=== PATIENT | male | born 1945 | race Two or more races ===

== ENCOUNTER 2016-06-13 17:50 | Inpatient (IN) | payer MEDICARE, OTHER ==
--- NOTE | 2016-06-13 18:50 | ED Physician Chart ---
Chief Complaint/HPI - Patient Information Date Seen:: 06/13/16 Time Seen:: 18:30 Chief Complaint:: anorexia History of Present Illness:: patient is anorexic and according to his brother (information from EMT) has lost 12 lb in 2 weeks. Has been constipated for the last 4 days. Allergies:: Allergies Allergy/AdvReac Type Severity Reaction Status Date / Time No Known Allergies Allergy Verified 06/13/16 18:42 Historian:: Patient, EMS Review:: Nurse's Note Reviewed Review of Systems - Review of Systems General/Constitutional: No fever, No chills, Loss of appetite Skin: No skin lesions Head: No headache Eyes: No loss of vision ENT: No earache Neck: No neck pain Cardio Vascular: No chest pain Pulmonary: No SOB GI: No nausea, No vomiting G/U: No dysuria Musculoskeletal: No bone or joint pain Endocrine: No polyuria Psychiatric: Depression Hematopoietic: Bruising Allergic/Immuno: No urticaria Neurological: No syncope, No focal symptoms Past Medical History - Past Medical History Past Medical History: Other (rectal bleeding; diaphragmatic hernia) Family History: None Social History: Non Smoker, No Alcohol Surgical History: other (bilateral inguinal hernia repair) Psychiatricy History: Depression Medication: Reviewed Family Medical History - Family Member Mother History Unknown: Yes Ethnicity: Physical Exam - Physical Examination General/Constitutional: Well-developed, well-nourished, Alert, No distress Other Gen/Cons comments:: alert and oriented to the correct month and year Head: Atraumatic Eyes: Lids, conjuctiva normal Skin: Nl inspection, No rash ENMT: External ears, nose nl, TM canals nl Neck: No nuchal rigidity Respiratory: Nl effort/Exclusion, Clear to Auscultation Cardio Vascular: RRR GI: No tenderness/rebounding/guarding, No organomegaly, No hernia, Nondistended , No mass/bruits, No McBurney tenderness Other GI comments:: no external hemorrhoids : No CVA tenderness Extremities: Normal digits & nails Neuro/Psych: No focal deficits Misc: No paraspinal tenderness Labs/Radiology/EKG Results - Lab Results Results: Laboratory Results - last 24 hr 06/13/16 06/13/16 18:55 18:55 WBC 6.1 RBC 4.27 Hgb 13.4 Hct 39.6 MCV 92.7 MCH 31.3 H MCHC Differential 33.8 RDW 12.6 Plt Count 353 D MPV 8.3 Neutrophils % 56.1 Lymphocytes % 30.8 Monocytes % 7.2 Eosinophils % 5.5 H Basophils % 0.4 Sodium 138 Potassium 3.5 Chloride 104 Carbon Dioxide 27.0 Anion Gap 10.5 BUN 16 Creatinine 0.9 Est GFR ( Amer) > 60.0 Est GFR (Non-Af Amer) > 60.0 BUN/Creatinine Ratio 17.8 Glucose 102 Calcium 9.7 Total Bilirubin 0.7 AST 33 ALT 29 Alkaline Phosphatase 54 Total Protein 7.1 Albumin 4.0 L Globulin 3.1 Albumin/Globulin Ratio 1.3 ED Septic Shock - . Is Septic Shock (SBP<90, OR Lactate>4 mmol\L) present?: No Reassessment (Disposition) - Reassessment Reassessment Condition:: Unchanged - Diagnosis Diagnosis:: depression; constipation; anorexia - Patient Disposition Admitted to:: [facility] Admitting Medical Physician:: David Zuniga Admitting Psych Physician:: Jefferson Smith Condition at Disposition:: Stable, Unchanged
[2016-06-13 19:00] LABS: % BASOPHILS 0.4 % (0.0-2.0); % EOSINOPHILS 5.5 % (0.0-5.0); % LYMPHOCYTES 30.8 % (20.0-50.0); % MONOCYTES 7.2 % (2.0-10.0); % NEUTROPHILS 56.1 % (40.0-80.0); HEMATOCRIT 39.6 % (39.0-49.0); HEMOGLOBIN 13.4 gm/dL (12.6-17.4); MEAN CELL VOLUME 92.7 fl (80-99); MEAN CORPUSCULAR HEMOGLOBIN 31.3 pg (27.0-31.0); MEAN CORPUSCULAR HGB CONC 33.8 pg (28.0-36.0); MEAN PLATELET VOLUME 8.3 fl; NEUTROPHILE ABSOLUTE 3.5 Th/cmm (1.8-8.0); RED BLOOD COUNT 4.27 Mil/cmm (3.80-5.80); RED CELL DISTRIBUTION WIDTH 12.6 % (11.5-20.0); WHITE BLOOD COUNT 6.1 Th/cmm (4.8-10.8)
[2016-06-13 19:02] LABS: PLATELET COUNT 353 Th/cmm (150-400)
[2016-06-13 19:13] LABS: ALB/GLOB RATIO 1.3 (1.0-1.8); ALKALINE PHOSPHATASE 54 U/L (34-104); ANION GAP 10.5 (7.0-16.0); BILIRUBIN,TOTAL 0.7 mg/dL (0.3-1.0); BUN - UREA NITROGEN 16 mg/dL (7-25); BUN/CREATININE RATIO 17.8; CALCIUM SERUM 9.7 mg/dL (8.6-10.3); CHLORIDE 104 mEq/L (98-107); CREATININE - SERUM 0.9 mg/dL (0.7-1.3); GLUCOSE 102 mg/dL (70-105); POTASSIUM SERUM 3.5 mEq/L (3.5-5.1); SGOT 33 U/L (13-39); SGPT/ALT 29 U/L (7-52); SODIUM SERUM 138 mEq/L (136-145)
[2016-06-13 23:29] VITALS: BP 124/74
[2016-06-14] MEDS ORDERED: Hydrocodone/APAP 5mg/325mg Tab PO PRN (02:41)
[2016-06-14] MEDS ORDERED: Polyvinyl Alcohol Ophth Soln 15 mL Bottle EACH EYE PRN (02:41)
[2016-06-14] MEDS: Pantoprazole 40 mg EC Tab PO SCH ×2 (08:38→16:56)
[2016-06-14] MEDS: Lactobacillus Rhamnosus 10 Billion CFU Capsule PO SCH (08:39)
[2016-06-14] MEDS: POLYETHYLENE GLYCOL 3350 17 GM PACK PO SCH (08:40)
--- NOTE | 2016-06-14 12:49 | Internal Medicine Prog Note ---
Internal Medicine Subjective - Subjective Service Date: 06/14/16 (030226) Internal Medicine Objective - Results Result Diagrams: 06/13/16 18:55 06/13/16 18:55 Recent Labs: Laboratory Last Values WBC 6.1 Th/cmm (4.8-10.8) 06/13/16 18:55 RBC 4.27 Mil/cmm (3.80-5.80) 06/13/16 18:55 Hgb 13.4 gm/dL (12.6-17.4) 06/13/16 18:55 Hct 39.6 % (39.0-49.0) 06/13/16 18:55 MCV 92.7 fl (80-99) 06/13/16 18:55 MCH 31.3 pg (27.0-31.0) H 06/13/16 18:55 MCHC Differential 33.8 pg (28.0-36.0) 06/13/16 18:55 RDW 12.6 % (11.5-20.0) 06/13/16 18:55 Plt Count 353 Th/cmm (150-400) D 06/13/16 18:55 MPV 8.3 fl 06/13/16 18:55 Neutrophils % 56.1 % (40.0-80.0) 06/13/16 18:55 Lymphocytes % 30.8 % (20.0-50.0) 06/13/16 18:55 Monocytes % 7.2 % (2.0-10.0) 06/13/16 18:55 Eosinophils % 5.5 % (0.0-5.0) H 06/13/16 18:55 Basophils % 0.4 % (0.0-2.0) 06/13/16 18:55 Sodium 138 mEq/L (136-145) 06/13/16 18:55 Potassium 3.5 mEq/L (3.5-5.1) 06/13/16 18:55 Chloride 104 mEq/L (98-107) 06/13/16 18:55 Carbon Dioxide 27.0 mEq/L (21.0-31.0) 06/13/16 18:55 Anion Gap 10.5 (7.0-16.0) 06/13/16 18:55 BUN 16 mg/dL (7-25) 06/13/16 18:55 Creatinine 0.9 mg/dL (0.7-1.3) 06/13/16 18:55 Est GFR ( Amer) > 60.0 ml/min (>90) 06/13/16 18:55 Est GFR (Non-Af Amer) > 60.0 ml/min 06/13/16 18:55 BUN/Creatinine Ratio 17.8 06/13/16 18:55 Glucose 102 mg/dL (70-105) 06/13/16 18:55 Calcium 9.7 mg/dL (8.6-10.3) 06/13/16 18:55 Total Bilirubin 0.7 mg/dL (0.3-1.0) 06/13/16 18:55 AST 33 U/L (13-39) 06/13/16 18:55 ALT 29 U/L (7-52) 06/13/16 18:55 Alkaline Phosphatase 54 U/L (34-104) 06/13/16 18:55 Total Protein 7.1 gm/dL (6.0-8.3) 06/13/16 18:55 Albumin 4.0 gm/dL (4.2-5.5) L 06/13/16 18:55 Globulin 3.1 gm/dL 06/13/16 18:55 Albumin/Globulin Ratio 1.3 (1.0-1.8) 06/13/16 18:55 TSH 1.40 uIU/ml (0.34-5.60) 06/13/16 18:55 - Physical Exam Vitals and I&O: Vital Signs Temp 97.6 F 06/14/16 07:17 Pulse 82 06/14/16 07:17 Resp 19 06/14/16 07:17 BP 104/62 06/14/16 07:17 Pulse Ox 97 06/14/16 07:17 Intake & Output 06/13/16 06/14/16 06/14/16 18:59 06:59 18:59 Other: # Voids 2 Active Medications: Current Medications Acetaminophen (Tylenol) 650 mg PO Q6HR PRN PRN Reason: MILD PAIN Stop: 08/13/16 02:40 Acetaminophen/Hydrocodone Bitart ([place] 5mg/325mg) 1 tab PO Q6HR PRN PRN Reason: Severe Pain Stop: 08/13/16 02:40 Artificial Tears (Artificial Tears Ophth Soln) 1 drop EACH EYE TID PRN PRN Reason: Dry Eye Stop: 08/13/16 02:40 Ascorbic Acid (Vitamin C) 500 mg PO DAILY [facility] Stop: 08/13/16 08:59 Last Admin: 06/14/16 08:38 Dose: 500 mg Bisacodyl (Dulcolax 10 Mg Supp) 10 mg RC DAILY PRN PRN Reason: Constipation Stop: 08/13/16 02:40 Docusate Sodium (Colace) 100 mg PO DAILY [facility] Stop: 08/13/16 08:59 Last Admin: 06/14/16 08:40 Dose: 100 mg Hydrocortisone (Anusol-Hc) 25 mg RC BID [facility] Stop: 08/13/16 08:59 Last Admin: 06/14/16 08:41 Dose: Not Given Lactobacillus Rhamnosus (Culturelle) 1 each PO DAILY [facility] Stop: 08/13/16 08:59 Last Admin: 06/14/16 08:39 Dose: 1 each Meclizine HCl (Antivert) 25 mg PO DAILY PRN PRN Reason: Nausea / Vomiting Stop: 08/13/16 02:40 Megestrol Acetate (Megace) 40 mg PO QAM [facility] PRN Reason: Protocol Stop: 08/13/16 08:59 Last Admin: 06/14/16 08:39 Dose: 40 mg Mirtazapine (Remeron) 15 mg PO HS [facility] PRN Reason: Protocol Stop: 08/13/16 20:59 Pantoprazole Sodium (Protonix) 40 mg PO BID [facility] Stop: 08/13/16 08:59 Last Admin: 06/14/16 08:38 Dose: 40 mg Polyethylene Glycol (Miralax) 17 gm PO DAILY [facility] Stop: 08/13/16 08:59 Last Admin: 06/14/16 08:40 Dose: 17 gm Tamsulosin HCl (Flomax) 0.4 mg PO DAILY [facility] Stop: 08/13/16 08:59 Last Admin: 06/14/16 08:39 Dose: 0.4 mg Internal Medicine Assmt/Plan - Assessment Assessment: FAILURE TO THRIVE GERD HIATAL HERNIA CHRONIC LOW BACK PAIN
--- NOTE | 2016-06-14 16:39 | History & Physical ---
CHIEF COMPLAINT: Failure to thrive and depression. HISTORY OF PRESENT ILLNESS: This is a 70-year-old male who is a resident of [facility] who is admitted to the Geropsych Unit. According to nursing staff, the patient has been depressed and has not been eating as much. For this reason, the patient is now admitted to the Geropsych Unit. PAST MEDICAL HISTORY: GERD, hiatal hernia, chronic low back pain. PAST SURGICAL HISTORY: Bilateral hernia surgeries. MEDICATIONS: Nexium, Megace and Zoloft. ALLERGIES: No drug allergies. SOCIAL HISTORY: The patient resides at [facility], requiring 24-hour nursing care. FAMILY HISTORY: Noncontributory. REVIEW OF SYSTEMS: CONSTITUTIONAL: The patient complains of no appetite. HEENT: No blurred vision. NECK: No neck pain. LUNGS: No COPD, asthma. CARDIOVASCULAR: No hypertension. No CAD. ABDOMEN: Nausea, vomiting, abdominal pain. GENITOURINARY: Denies any dysuria. PHYSICAL EXAMINATION: GENERAL: This is an elderly male. Awake, alert, in no apparent distress. VITAL SIGNS: Temperature 97.6, heart rate 82, blood pressure 104/62, respirations 19, O2 97%. HEENT: Head: Normocephalic, atraumatic. NECK: Supple. RESPIRATORY: No mass. LUNGS: Clear bilaterally upon auscultation. HEART: Regular rate and rhythm. No murmurs or gallops. SKIN: Intact, warm and dry to touch. ABDOMEN: Soft, nontender, nondistended. Positive bowel sounds in all 4 quadrants. LABORATORY DATA: WBC 6.1, H and H 13.4 and 39.6, platelet 354. Sodium 130, potassium 3.5, chloride 104, BUN 16, creatinine 0.9. ASSESSMENT: 1. Failure to thrive. 2. Depression. 3. Gastroesophageal reflux disease. 4. Hiatal hernia. 5. Chronic low back pain. PLAN: The patient to continue with Megace. We will do a calorie count. The patient will have oral supplements. The patient will be on Protonix. We will continue to monitor the patient. JOB# [id number]
--- NOTE | 2016-06-15 03:24 | Psychosocial Evaluation ---
CHIEF COMPLAINT: "I have no appetite to eat." HISTORY OF PRESENT ILLNESS: The patient is a 70-year-old male who was brought into the hospital because of increased depression and lack of appetite. The patient has not been eating and has been refusing to eat and he lost about 12 pounds in the last 5 weeks. The patient also has been delusional and he believes that he is dying. He also has been feeling hopeless and helpless. The patient also is interacting minimally with others and has been having lack of energy and lack of motivation. Also, personal hygiene much deteriorated and he has not been able to care for self. Staff in the facility, where he lives, has not been able to handle him because of increase in his refusal to eat and to cooperate with them. He was transferred to the hospital. PAST PSYCHIATRIC HISTORY: The patient has history of depression and he has been taking Remeron. PAST MEDICAL HISTORY: Noncontributory. FAMILY PSYCHIATRIC HISTORY: Noncontributory. CHEMICAL DEPENDENCY HISTORY: The patient denies. SOCIAL HISTORY: The patient is single, never and has no children. He lives in [facility]. He has 1 brother that is supportive to him and pretty much involved in his care. He denies alcohol or street drug use or smoking cigarettes. No legal issues. No history of abuse. ALLERGIES: No known allergies. MENTAL STATUS EXAMINATION: The patient appears his stated age. Anxious. Sad affect. In a depressed mood. Thought processes are mainly goal directed. The patient denies auditory or visual hallucinations or delusions, but he seems to be paranoid, thinking that he is dying. The patient denies any suicidal or homicidal ideations. The patient is alert and oriented to time, place, person, and situation. Intact immediate, recent and remote memories. Fair insight. Judgment is questionable. He seems to be of average intelligence based on his verbal ability. ASSESSMENT PRIMARY DIAGNOSES: Major depression, severe, recurrent, with psychotic features. TREATMENT PLAN: We will observe the patient closely. We will continue Remeron and some other antidepressants based on further evaluation. Also, we will monitor his psychosis. Also, behavioral modification. ESTIMATED LENGTH OF STAY: 7-10 days. THE PATIENT' STRENGTHS AND WEAKNESSES: The patient's general fund of knowledge is fair. Weakness is his ineffective coping. AFTER DISCHARGE PLAN: Outpatient treatment and followup, will continue as an outpatient. CRITERIA FOR DISCHARGE: The patient will not be psychotic and will stabilize psychotropic medications and ____ outpatient treatment plans. [facility]# [phone]
[2016-06-15] MEDS: POLYETHYLENE GLYCOL 3350 17 GM PACK PO SCH (08:10)
[2016-06-15] MEDS: Pantoprazole 40 mg EC Tab PO SCH ×2 (08:11→17:17)
[2016-06-15] MEDS: Lactobacillus Rhamnosus 10 Billion CFU Capsule PO SCH ×2 (08:11→08:15)
[2016-06-15] MEDS ORDERED: Magnesium Hydroxide (MOM) 30 mL UDC PO ONE (09:56)
[2016-06-15] MEDS ORDERED: Magnesium Hydroxide (MOM) 30 mL UDC PO PRN (09:56)
--- NOTE | 2016-06-15 14:47 | Internal Medicine Prog Note ---
Internal Medicine Subjective - Subjective Service Date: 06/15/16 Patient seen and examined:: with staff Patient is:: awake Internal Medicine Objective - Results Result Diagrams: 06/13/16 18:55 06/13/16 18:55 Recent Labs: Laboratory Last Values WBC 6.1 Th/cmm (4.8-10.8) 06/13/16 18:55 RBC 4.27 Mil/cmm (3.80-5.80) 06/13/16 18:55 Hgb 13.4 gm/dL (12.6-17.4) 06/13/16 18:55 Hct 39.6 % (39.0-49.0) 06/13/16 18:55 MCV 92.7 fl (80-99) 06/13/16 18:55 MCH 31.3 pg (27.0-31.0) H 06/13/16 18:55 MCHC Differential 33.8 pg (28.0-36.0) 06/13/16 18:55 RDW 12.6 % (11.5-20.0) 06/13/16 18:55 Plt Count 353 Th/cmm (150-400) D 06/13/16 18:55 MPV 8.3 fl 06/13/16 18:55 Neutrophils % 56.1 % (40.0-80.0) 06/13/16 18:55 Lymphocytes % 30.8 % (20.0-50.0) 06/13/16 18:55 Monocytes % 7.2 % (2.0-10.0) 06/13/16 18:55 Eosinophils % 5.5 % (0.0-5.0) H 06/13/16 18:55 Basophils % 0.4 % (0.0-2.0) 06/13/16 18:55 Sodium 138 mEq/L (136-145) 06/13/16 18:55 Potassium 3.5 mEq/L (3.5-5.1) 06/13/16 18:55 Chloride 104 mEq/L (98-107) 06/13/16 18:55 Carbon Dioxide 27.0 mEq/L (21.0-31.0) 06/13/16 18:55 Anion Gap 10.5 (7.0-16.0) 06/13/16 18:55 BUN 16 mg/dL (7-25) 06/13/16 18:55 Creatinine 0.9 mg/dL (0.7-1.3) 06/13/16 18:55 Est GFR ( Amer) > 60.0 ml/min (>90) 06/13/16 18:55 Est GFR (Non-Af Amer) > 60.0 ml/min 06/13/16 18:55 BUN/Creatinine Ratio 17.8 06/13/16 18:55 Glucose 102 mg/dL (70-105) 06/13/16 18:55 Calcium 9.7 mg/dL (8.6-10.3) 06/13/16 18:55 Total Bilirubin 0.7 mg/dL (0.3-1.0) 06/13/16 18:55 AST 33 U/L (13-39) 06/13/16 18:55 ALT 29 U/L (7-52) 06/13/16 18:55 Alkaline Phosphatase 54 U/L (34-104) 06/13/16 18:55 Total Protein 7.1 gm/dL (6.0-8.3) 06/13/16 18:55 Albumin 4.0 gm/dL (4.2-5.5) L 06/13/16 18:55 Globulin 3.1 gm/dL 06/13/16 18:55 Albumin/Globulin Ratio 1.3 (1.0-1.8) 06/13/16 18:55 TSH 1.40 uIU/ml (0.34-5.60) 06/13/16 18:55 RPR NONREACTIVE (NONREACTIVE) 06/13/16 18:55 - Physical Exam Vitals and I&O: Vital Signs Temp 97 F 06/15/16 06:56 Pulse 58 06/15/16 06:56 Resp 19 06/15/16 06:56 BP 128/68 06/15/16 06:56 Pulse Ox 97 06/15/16 06:56 Intake & Output 06/14/16 06/15/16 06/15/16 18:59 06:59 18:59 Intake Total 1200 Balance 1200 Weight (lbs) 160 lb 1.6 oz Intake: Oral 1200 Other: # Voids 4 2 # Bowel Movements 2 Active Medications: Current Medications Acetaminophen (Tylenol) 650 mg PO Q6HR PRN PRN Reason: MILD PAIN Stop: 03/28/17 02:40 Acetaminophen/Hydrocodone Bitart ([place] 5mg/325mg) 1 tab PO Q6HR PRN PRN Reason: Severe Pain Stop: 08/13/16 02:40 Artificial Tears (Artificial Tears Ophth Soln) 1 drop EACH EYE TID PRN PRN Reason: Dry Eye Stop: 08/13/16 02:40 Ascorbic Acid (Vitamin C) 500 mg PO DAILY [facility] Stop: 08/13/16 08:59 Last Admin: 06/15/16 08:15 Dose: 500 mg Bisacodyl (Dulcolax 10 Mg Supp) 10 mg RC DAILY PRN PRN Reason: Constipation Stop: 08/13/16 02:40 Last Admin: 06/15/16 14:05 Dose: 10 mg Docusate Sodium (Colace) 100 mg PO DAILY [facility] Stop: 08/13/16 08:59 Last Admin: 06/15/16 08:13 Dose: Not Given Hydrocortisone (Anusol-Hc) 25 mg RC BID [facility] Stop: 08/13/16 08:59 Last Admin: 06/15/16 08:13 Dose: Not Given Lactobacillus Rhamnosus (Culturelle) 1 each PO DAILY [facility] Stop: 08/13/16 08:59 Last Admin: 06/15/16 08:15 Dose: Not Given Meclizine HCl (Antivert) 25 mg PO DAILY PRN PRN Reason: Nausea / Vomiting Stop: 08/13/16 02:40 Megestrol Acetate (Megace) 40 mg PO QAM [facility] PRN Reason: Protocol Stop: 08/13/16 08:59 Last Admin: 06/15/16 08:15 Dose: Not Given Mirtazapine (Remeron) 15 mg PO HS [facility] PRN Reason: Protocol Stop: 08/13/16 20:59 Last Admin: 06/14/16 20:12 Dose: 15 mg Mupirocin (Bactroban Oint) 1 appl NS BID [facility] Stop: 06/20/16 09:01 Pantoprazole Sodium (Protonix) 40 mg PO BID [facility] Stop: 08/13/16 08:59 Last Admin: 06/15/16 08:11 Dose: 40 mg Polyethylene Glycol (Miralax) 17 gm PO DAILY [facility] Stop: 08/13/16 08:59 Last Admin: 06/15/16 08:10 Dose: 17 gm Tamsulosin HCl (Flomax) 0.4 mg PO DAILY [facility] Stop: 08/13/16 08:59 Last Admin: 06/15/16 08:11 Dose: 0.4 mg General: weak, alert HEENT: NC/AT, PERRLA Neck: Supple Lungs: CTAB Cardiovascular: RRR, Normal S1, Normal S2, without murmur Abdomen: soft non-tender, non-distended, positive bowel sound Neurological: no change Internal Medicine Assmt/Plan - Assessment Assessment: FAILURE TO THRIVE GERD HIATAL HERNIA CHRONIC LOW BACK PAIN MRSA NARES - Plan Plan: bactroban bid ppi cont. megace calorie count
--- NOTE | 2016-06-16 01:50 | Progress Notes ---
SUBJECTIVE: The patient was seen, chart reviewed and discussed with staff. The patient remains very anxious at this time, currently in the hospital, was making statements that he wanted to no longer live. Staff at [facility] were concerned because he had been losing weight, severe depression, about 11-12 pound weight loss, very somatic, believes he is dying, believes there is something wrong with his stomach, although I have spoken with Dr. Zuniga previously about this patient and tests have been negative. The patient clearly has lost weight, decrease in personal hygiene. The patient does talk to me today about this stomach and his inability to go to the bathroom. Sleeping fairly well but highly anxious. ASSESSMENT: The patient is highly somatic, fearful he is going to . Not eating well. Interruptions in his ability to care for himself or be cared for at a lower level of care. Medications were reviewed. Labs were reviewed. The patient remains symptomatic, continued concerns about weight loss. PLAN: We will continue to monitor. The patient will likely benefit from low doses of Ativan to try to alleviate anxiety. [facility]# [phone] [id number]
[2016-06-16] MEDS: Pantoprazole 40 mg EC Tab PO SCH ×2 (10:04→17:23)
[2016-06-16] MEDS: Lactobacillus Rhamnosus 10 Billion CFU Capsule PO SCH (10:04)
[2016-06-16] MEDS: POLYETHYLENE GLYCOL 3350 17 GM PACK PO SCH (15:23)
--- NOTE | 2016-06-16 18:00 | Internal Medicine Prog Note ---
Internal Medicine Subjective - Subjective Service Date: 06/16/16 Patient seen and examined:: with staff Patient is:: awake Per staff patient is:: no adverse event Internal Medicine Objective - Results Result Diagrams: 06/13/16 18:55 06/13/16 18:55 Recent Labs: Laboratory Last Values WBC 6.1 Th/cmm (4.8-10.8) 06/13/16 18:55 RBC 4.27 Mil/cmm (3.80-5.80) 06/13/16 18:55 Hgb 13.4 gm/dL (12.6-17.4) 06/13/16 18:55 Hct 39.6 % (39.0-49.0) 06/13/16 18:55 MCV 92.7 fl (80-99) 06/13/16 18:55 MCH 31.3 pg (27.0-31.0) H 06/13/16 18:55 MCHC Differential 33.8 pg (28.0-36.0) 06/13/16 18:55 RDW 12.6 % (11.5-20.0) 06/13/16 18:55 Plt Count 353 Th/cmm (150-400) D 06/13/16 18:55 MPV 8.3 fl 06/13/16 18:55 Neutrophils % 56.1 % (40.0-80.0) 06/13/16 18:55 Lymphocytes % 30.8 % (20.0-50.0) 06/13/16 18:55 Monocytes % 7.2 % (2.0-10.0) 06/13/16 18:55 Eosinophils % 5.5 % (0.0-5.0) H 06/13/16 18:55 Basophils % 0.4 % (0.0-2.0) 06/13/16 18:55 Sodium 138 mEq/L (136-145) 06/13/16 18:55 Potassium 3.5 mEq/L (3.5-5.1) 06/13/16 18:55 Chloride 104 mEq/L (98-107) 06/13/16 18:55 Carbon Dioxide 27.0 mEq/L (21.0-31.0) 06/13/16 18:55 Anion Gap 10.5 (7.0-16.0) 06/13/16 18:55 BUN 16 mg/dL (7-25) 06/13/16 18:55 Creatinine 0.9 mg/dL (0.7-1.3) 06/13/16 18:55 Est GFR ( Amer) > 60.0 ml/min (>90) 06/13/16 18:55 Est GFR (Non-Af Amer) > 60.0 ml/min 06/13/16 18:55 BUN/Creatinine Ratio 17.8 06/13/16 18:55 Glucose 102 mg/dL (70-105) 06/13/16 18:55 Calcium 9.7 mg/dL (8.6-10.3) 06/13/16 18:55 Total Bilirubin 0.7 mg/dL (0.3-1.0) 06/13/16 18:55 AST 33 U/L (13-39) 06/13/16 18:55 ALT 29 U/L (7-52) 06/13/16 18:55 Alkaline Phosphatase 54 U/L (34-104) 06/13/16 18:55 Total Protein 7.1 gm/dL (6.0-8.3) 06/13/16 18:55 Albumin 4.0 gm/dL (4.2-5.5) L 06/13/16 18:55 Globulin 3.1 gm/dL 06/13/16 18:55 Albumin/Globulin Ratio 1.3 (1.0-1.8) 06/13/16 18:55 TSH 1.40 uIU/ml (0.34-5.60) 06/13/16 18:55 RPR NONREACTIVE (NONREACTIVE) 06/13/16 18:55 - Physical Exam Vitals and I&O: Vital Signs Temp 99.5 F 06/16/16 15:35 Pulse 68 06/16/16 15:35 Resp 20 06/16/16 15:35 BP 115/76 06/16/16 15:35 Pulse Ox 98 06/16/16 15:35 Intake & Output 06/15/16 06/16/16 06/16/16 18:59 06:59 18:59 Intake Total 1200 Balance 1200 Intake: Oral 1200 Other: # Voids 3 2 # Bowel Movements 1 Active Medications: Current Medications Acetaminophen (Tylenol) 650 mg PO Q6HR PRN PRN Reason: MILD PAIN Stop: 03/28/17 02:40 Acetaminophen/Hydrocodone Bitart ([place] 5mg/325mg) 1 tab PO Q6HR PRN PRN Reason: Severe Pain Stop: 08/13/16 02:40 Aripiprazole (Abilify) 2 mg PO DAILY [facility] PRN Reason: Protocol Stop: 08/15/16 08:59 Last Admin: 06/16/16 10:05 Dose: 2 mg Aripiprazole (Abilify) 2.5 mg PO DAILY [facility] Stop: 08/15/16 08:59 Last Admin: 06/16/16 10:05 Dose: 2.5 mg Artificial Tears (Artificial Tears Ophth Soln) 1 drop EACH EYE TID PRN PRN Reason: Dry Eye Stop: 08/13/16 02:40 Ascorbic Acid (Vitamin C) 500 mg PO DAILY [facility] Stop: 08/13/16 08:59 Last Admin: 06/16/16 10:05 Dose: 500 mg Bisacodyl (Dulcolax 10 Mg Supp) 10 mg RC DAILY PRN PRN Reason: Constipation Stop: 08/13/16 02:40 Last Admin: 06/15/16 14:05 Dose: 10 mg Docusate Sodium (Colace) 100 mg PO DAILY [facility] Stop: 08/13/16 08:59 Last Admin: 06/16/16 10:04 Dose: 100 mg Hydrocortisone (Anusol-Hc) 25 mg RC BID [facility] Stop: 08/13/16 08:59 Last Admin: 06/16/16 15:23 Dose: Not Given Lactobacillus Rhamnosus (Culturelle) 1 each PO DAILY [facility] Stop: 08/13/16 08:59 Last Admin: 06/16/16 10:04 Dose: 1 each Meclizine HCl (Antivert) 25 mg PO DAILY PRN PRN Reason: Nausea / Vomiting Stop: 08/13/16 02:40 Megestrol Acetate (Megace) 40 mg PO QAM [facility] PRN Reason: Protocol Stop: 08/13/16 08:59 Last Admin: 06/16/16 10:04 Dose: 40 mg Mirtazapine (Remeron) 15 mg PO HS [facility] PRN Reason: Protocol Stop: 08/13/16 20:59 Last Admin: 06/15/16 20:35 Dose: 15 mg Mupirocin (Bactroban Oint) 1 appl NS BID [facility] Stop: 06/20/16 09:01 Last Admin: 06/16/16 10:08 Dose: Not Given Pantoprazole Sodium (Protonix) 40 mg PO BID [facility] Stop: 08/13/16 08:59 Last Admin: 06/16/16 17:23 Dose: 40 mg Polyethylene Glycol (Miralax) 17 gm PO DAILY [facility] Stop: 08/13/16 08:59 Last Admin: 06/16/16 15:23 Dose: Not Given Tamsulosin HCl (Flomax) 0.4 mg PO DAILY [facility] Stop: 08/13/16 08:59 Last Admin: 06/16/16 10:04 Dose: 0.4 mg General: alert HEENT: NC/AT, PERRLA Neck: Supple Lungs: CTAB Cardiovascular: RRR, Normal S1, Normal S2, without murmur Abdomen: soft non-tender, non-distended Internal Medicine Assmt/Plan - Assessment Assessment: FAILURE TO THRIVE GERD HIATAL HERNIA CHRONIC LOW BACK PAIN MRSA NARES - Plan Plan: bactroban bid ppi cont. megace calorie count
--- NOTE | 2016-06-17 03:12 | Progress Notes ---
SUBJECTIVE: The patient seen, chart reviewed and discussed with staff. The patient remains symptomatic, still talking about denying, still highly symptomatic, believes there is something with the stomach, not eating very well, highly isolative, withdrawn, hopeless, despairing, stays in his room most of the time, still complaining of gas pain and stomach pain. MEDICATIONS: Reviewed. LABORATORY DATA: Labs were reviewed. ASSESSMENT: The patient is still highly symptomatic, still talking about wanting to , not safe for a lower level of care, still symptomatic and still highly depressed. PLAN: We will continue to monitor and monitor for any overt side effects. We will try to also get in touch with Dr. Zuniga to see if there is any other medical interventions. [facility]# [id number]
[2016-06-17] MEDS: Lactobacillus Rhamnosus 10 Billion CFU Capsule PO SCH (10:04)
[2016-06-17] MEDS: Pantoprazole 40 mg EC Tab PO SCH ×2 (10:06→17:09)
[2016-06-17] MEDS: POLYETHYLENE GLYCOL 3350 17 GM PACK PO SCH (10:06)
--- NOTE | 2016-06-17 12:44 | Internal Medicine Prog Note ---
Internal Medicine Subjective - Subjective Service Date: 06/17/16 Patient seen and examined:: with staff Patient is:: awake Per staff patient is:: no adverse event Internal Medicine Objective - Results Result Diagrams: 06/13/16 18:55 06/13/16 18:55 Recent Labs: Laboratory Last Values WBC 6.1 Th/cmm (4.8-10.8) 06/13/16 18:55 RBC 4.27 Mil/cmm (3.80-5.80) 06/13/16 18:55 Hgb 13.4 gm/dL (12.6-17.4) 06/13/16 18:55 Hct 39.6 % (39.0-49.0) 06/13/16 18:55 MCV 92.7 fl (80-99) 06/13/16 18:55 MCH 31.3 pg (27.0-31.0) H 06/13/16 18:55 MCHC Differential 33.8 pg (28.0-36.0) 06/13/16 18:55 RDW 12.6 % (11.5-20.0) 06/13/16 18:55 Plt Count 353 Th/cmm (150-400) D 06/13/16 18:55 MPV 8.3 fl 06/13/16 18:55 Neutrophils % 56.1 % (40.0-80.0) 06/13/16 18:55 Lymphocytes % 30.8 % (20.0-50.0) 06/13/16 18:55 Monocytes % 7.2 % (2.0-10.0) 06/13/16 18:55 Eosinophils % 5.5 % (0.0-5.0) H 06/13/16 18:55 Basophils % 0.4 % (0.0-2.0) 06/13/16 18:55 Sodium 138 mEq/L (136-145) 06/13/16 18:55 Potassium 3.5 mEq/L (3.5-5.1) 06/13/16 18:55 Chloride 104 mEq/L (98-107) 06/13/16 18:55 Carbon Dioxide 27.0 mEq/L (21.0-31.0) 06/13/16 18:55 Anion Gap 10.5 (7.0-16.0) 06/13/16 18:55 BUN 16 mg/dL (7-25) 06/13/16 18:55 Creatinine 0.9 mg/dL (0.7-1.3) 06/13/16 18:55 Est GFR ( Amer) > 60.0 ml/min (>90) 06/13/16 18:55 Est GFR (Non-Af Amer) > 60.0 ml/min 06/13/16 18:55 BUN/Creatinine Ratio 17.8 06/13/16 18:55 Glucose 102 mg/dL (70-105) 06/13/16 18:55 Calcium 9.7 mg/dL (8.6-10.3) 06/13/16 18:55 Total Bilirubin 0.7 mg/dL (0.3-1.0) 06/13/16 18:55 AST 33 U/L (13-39) 06/13/16 18:55 ALT 29 U/L (7-52) 06/13/16 18:55 Alkaline Phosphatase 54 U/L (34-104) 06/13/16 18:55 Total Protein 7.1 gm/dL (6.0-8.3) 06/13/16 18:55 Albumin 4.0 gm/dL (4.2-5.5) L 06/13/16 18:55 Globulin 3.1 gm/dL 06/13/16 18:55 Albumin/Globulin Ratio 1.3 (1.0-1.8) 06/13/16 18:55 TSH 1.40 uIU/ml (0.34-5.60) 06/13/16 18:55 RPR NONREACTIVE (NONREACTIVE) 06/13/16 18:55 - Physical Exam Vitals and I&O: Vital Signs Temp 98.2 F 06/17/16 06:46 Pulse 65 06/17/16 06:46 Resp 20 06/17/16 11:46 BP 116/65 06/17/16 06:46 Pulse Ox 96 06/17/16 06:46 Intake & Output 06/16/16 06/17/16 06/17/16 18:59 06:59 18:59 Intake Total 1800 120 Balance 1800 120 Intake: Oral 1800 120 Other: # Voids 3 3 # Bowel Movements 1 0 Active Medications: Current Medications Acetaminophen (Tylenol) 650 mg PO Q6HR PRN PRN Reason: MILD PAIN Stop: 08/13/16 02:40 Acetaminophen/Hydrocodone Bitart ([place] 5mg/325mg) 1 tab PO Q6HR PRN PRN Reason: Severe Pain Stop: 08/13/16 02:40 Aripiprazole (Abilify) 2 mg PO DAILY [facility] PRN Reason: Protocol Stop: 08/15/16 08:59 Last Admin: 06/17/16 10:03 Dose: 2 mg Aripiprazole (Abilify) 2.5 mg PO DAILY [facility] Stop: 08/15/16 08:59 Last Admin: 06/17/16 10:02 Dose: 2.5 mg Artificial Tears (Artificial Tears Ophth Soln) 1 drop EACH EYE TID PRN PRN Reason: Dry Eye Stop: 08/13/16 02:40 Ascorbic Acid (Vitamin C) 500 mg PO DAILY [facility] Stop: 08/13/16 08:59 Last Admin: 06/17/16 10:05 Dose: Not Given Bisacodyl (Dulcolax 10 Mg Supp) 10 mg RC DAILY PRN PRN Reason: Constipation Stop: 08/13/16 02:40 Last Admin: 06/15/16 14:05 Dose: 10 mg Docusate Sodium (Colace) 100 mg PO DAILY [facility] Stop: 08/13/16 08:59 Last Admin: 06/17/16 10:03 Dose: 100 mg Hydrocortisone (Anusol-Hc) 25 mg RC BID [facility] Stop: 08/13/16 08:59 Last Admin: 06/17/16 10:02 Dose: Not Given Lactobacillus Rhamnosus (Culturelle) 1 each PO DAILY [facility] Stop: 08/13/16 08:59 Last Admin: 06/17/16 10:04 Dose: 1 each Meclizine HCl (Antivert) 25 mg PO DAILY PRN PRN Reason: Nausea / Vomiting Stop: 08/13/16 02:40 Megestrol Acetate (Megace) 40 mg PO QAM [facility] PRN Reason: Protocol Stop: 08/13/16 08:59 Last Admin: 06/17/16 10:04 Dose: 40 mg Mirtazapine (Remeron) 15 mg PO HS [facility] PRN Reason: Protocol Stop: 08/13/16 20:59 Last Admin: 06/16/16 21:00 Dose: 15 mg Mupirocin (Bactroban Oint) 1 appl NS BID [facility] Stop: 06/20/16 09:01 Last Admin: 06/17/16 10:07 Dose: 1 appl Pantoprazole Sodium (Protonix) 40 mg PO BID [facility] Stop: 08/13/16 08:59 Last Admin: 06/17/16 10:06 Dose: 40 mg Polyethylene Glycol (Miralax) 17 gm PO DAILY [facility] Stop: 08/13/16 08:59 Last Admin: 06/17/16 10:06 Dose: 17 gm Pseudoephedrine HCl (Sudafed) 60 mg PO Q6H PRN PRN Reason: Congestion Stop: 08/15/16 19:00 Last Admin: 06/16/16 21:00 Dose: 60 mg Tamsulosin HCl (Flomax) 0.4 mg PO DAILY [facility] Stop: 08/13/16 08:59 Last Admin: 06/17/16 10:07 Dose: 0.4 mg General: alert HEENT: NC/AT, PERRLA Neck: Supple Lungs: CTAB Cardiovascular: RRR, Normal S1, Normal S2, without murmur Abdomen: soft non-tender, non-distended Extremities: clear Internal Medicine Assmt/Plan - Assessment Assessment: FAILURE TO THRIVE GERD HIATAL HERNIA CHRONIC LOW BACK PAIN MRSA NARES - Plan Plan: ppi cont. megace bmp in am
--- NOTE | 2016-06-18 07:27 | Progress Notes ---
Covering for Dr. Smith. This is a 70-year-old male who was admitted on 06/13/2016, because of depression, lack of appetite, has not been eating, has been refusing to eat. Lost about 12 pounds in the last 5 weeks. Also has been delusional. He believes that he is dying. He also has been feeling hopeless and helpless. He was isolating himself with lack of energy and motivation, poor personal hygiene, unable to care for himself, with a history of depression. The patient so far as ____ has been very obsessive. People have to clean himself all the time. He continues to be depressed. Continues to have poor insight. He is on Remeron 50 mg at bedtime and Abilify 2 mg daily that was initiated yesterday with no side effects, no sedation, and no nausea, and we will continue to work with the patient in group therapy, milieu therapy, and adjust the medication as needed. JOB# [id number]
[2016-06-18] MEDS: POLYETHYLENE GLYCOL 3350 17 GM PACK PO SCH (10:44)
[2016-06-18] MEDS: Pantoprazole 40 mg EC Tab PO SCH ×2 (10:51→16:55)
[2016-06-18] MEDS: Lactobacillus Rhamnosus 10 Billion CFU Capsule PO SCH (10:54)
[2016-06-18 11:53] LABS: ALB/GLOB RATIO 1.1 (1.0-1.8); ALKALINE PHOSPHATASE 43 U/L (34-104); AMYLASE SERUM 51 U/L (29-103); ANION GAP 5.3 (7.0-16.0); BILIRUBIN,TOTAL 0.7 mg/dL (0.3-1.0); BUN - UREA NITROGEN 14 mg/dL (7-25); BUN/CREATININE RATIO 15.6; CALCIUM SERUM 9.3 mg/dL (8.6-10.3); CARBON DIOXIDE 23.6 mEq/L (21.0-31.0); CHLORIDE 109 mEq/L (98-107); CREATININE - SERUM 0.9 mg/dL (0.7-1.3); GLUCOSE 100 mg/dL (70-105); LIPASE 23 U/L (11-82); POTASSIUM SERUM 3.9 mEq/L (3.5-5.1); SGOT 24 U/L (13-39); SGPT/ALT 24 U/L (7-52); SODIUM SERUM 134 mEq/L (136-145)
[2016-06-18 12:20] LABS: % BASOPHILS 3.6 % (0.0-2.0); % EOSINOPHILS 5.6 % (0.0-5.0); % LYMPHOCYTES 29.6 % (20.0-50.0); % NEUTROPHILS 55.2 % (40.0-80.0); HEMATOCRIT 35.9 % (39.0-49.0); HEMOGLOBIN 12.5 gm/dL (12.6-17.4); MEAN CELL VOLUME 92.1 fl (80-99); MEAN CORPUSCULAR HEMOGLOBIN 32.2 pg (27.0-31.0); MEAN CORPUSCULAR HGB CONC 34.9 pg (28.0-36.0); MEAN PLATELET VOLUME 9.7 fl; NEUTROPHILE ABSOLUTE 3.6 Th/cmm (1.8-8.0); PLATELET COUNT 303 Th/cmm (150-400); RED CELL DISTRIBUTION WIDTH 12.6 % (11.5-20.0); WHITE BLOOD COUNT 6.6 Th/cmm (4.8-10.8)
--- NOTE | 2016-06-18 12:51 | Internal Medicine Prog Note ---
Internal Medicine Subjective - Subjective Service Date: 06/18/16 (c/o constipation ) Patient seen and examined:: with staff Patient is:: awake Per staff patient is:: no adverse event Internal Medicine Objective - Results Result Diagrams: 06/18/16 11:15 06/18/16 11:15 Recent Labs: Laboratory Last Values WBC 6.6 Th/cmm (4.8-10.8) 06/18/16 11:15 RBC 3.90 Mil/cmm (3.80-5.80) 06/18/16 11:15 Hgb 12.5 gm/dL (12.6-17.4) L 06/18/16 11:15 Hct 35.9 % (39.0-49.0) L 06/18/16 11:15 MCV 92.1 fl (80-99) 06/18/16 11:15 MCH 32.2 pg (27.0-31.0) H 06/18/16 11:15 MCHC Differential 34.9 pg (28.0-36.0) 06/18/16 11:15 RDW 12.6 % (11.5-20.0) 06/18/16 11:15 Plt Count 303 Th/cmm (150-400) 06/18/16 11:15 MPV 9.7 fl 06/18/16 11:15 Neutrophils % 55.2 % (40.0-80.0) 06/18/16 11:15 Lymphocytes % 29.6 % (20.0-50.0) 06/18/16 11:15 Monocytes % 6.0 % (2.0-10.0) 06/18/16 11:15 Eosinophils % 5.6 % (0.0-5.0) H 06/18/16 11:15 Basophils % 3.6 % (0.0-2.0) H 06/18/16 11:15 Sodium 134 mEq/L (136-145) L 06/18/16 11:15 Potassium 3.9 mEq/L (3.5-5.1) 06/18/16 11:15 Chloride 109 mEq/L (98-107) H 06/18/16 11:15 Carbon Dioxide 23.6 mEq/L (21.0-31.0) 06/18/16 11:15 Anion Gap 5.3 (7.0-16.0) L 06/18/16 11:15 BUN 14 mg/dL (7-25) 06/18/16 11:15 Creatinine 0.9 mg/dL (0.7-1.3) 06/18/16 11:15 Est GFR ( Amer) > 60.0 ml/min (>90) 06/18/16 11:15 Est GFR (Non-Af Amer) > 60.0 ml/min 06/18/16 11:15 BUN/Creatinine Ratio 15.6 06/18/16 11:15 Glucose 100 mg/dL (70-105) 06/18/16 11:15 Calcium 9.3 mg/dL (8.6-10.3) 06/18/16 11:15 Total Bilirubin 0.7 mg/dL (0.3-1.0) 06/18/16 11:15 AST 24 U/L (13-39) 06/18/16 11:15 ALT 24 U/L (7-52) 06/18/16 11:15 Alkaline Phosphatase 43 U/L (34-104) 06/18/16 11:15 Total Protein 6.4 gm/dL (6.0-8.3) 06/18/16 11:15 Albumin 3.4 gm/dL (4.2-5.5) L 06/18/16 11:15 Globulin 3.0 gm/dL 06/18/16 11:15 Albumin/Globulin Ratio 1.1 (1.0-1.8) 06/18/16 11:15 Amylase 51 U/L (29-103) 06/18/16 11:15 Lipase 23 U/L (11-82) 06/18/16 11:15 TSH 1.40 uIU/ml (0.34-5.60) 06/13/16 18:55 RPR NONREACTIVE (NONREACTIVE) 06/13/16 18:55 - Physical Exam Vitals and I&O: Vital Signs Temp 98.3 F 06/18/16 05:59 Pulse 60 06/18/16 05:59 Resp 20 06/18/16 05:59 BP 101/56 06/18/16 05:59 Pulse Ox 96 06/18/16 05:59 Intake & Output 01/30/17 01/31/17 01/31/17 18:59 06:59 18:59 Intake Total 800 240 Balance 800 240 Intake: Oral 800 240 Other: # Voids 3 2 # Bowel Movements 1 0 Active Medications: Current Medications Acetaminophen (Tylenol) 650 mg PO Q6HR PRN PRN Reason: MILD PAIN Stop: 08/13/16 02:40 Acetaminophen/Hydrocodone Bitart ([place] 5mg/325mg) 1 tab PO Q6HR PRN PRN Reason: Severe Pain Stop: 08/13/16 02:40 Aripiprazole (Abilify) 2 mg PO DAILY [facility] PRN Reason: Protocol Stop: 08/15/16 08:59 Last Admin: 06/18/16 10:52 Dose: 2 mg Aripiprazole (Abilify) 2.5 mg PO DAILY [facility] Stop: 08/15/16 08:59 Last Admin: 06/18/16 10:52 Dose: 2.5 mg Artificial Tears (Artificial Tears Ophth Soln) 1 drop EACH EYE TID PRN PRN Reason: Dry Eye Stop: 08/13/16 02:40 Ascorbic Acid (Vitamin C) 500 mg PO DAILY [facility] Stop: 08/13/16 08:59 Last Admin: 06/18/16 10:53 Dose: Not Given Bisacodyl (Dulcolax 10 Mg Supp) 10 mg RC DAILY PRN PRN Reason: Constipation Stop: 08/13/16 02:40 Last Admin: 06/15/16 14:05 Dose: 10 mg Docusate Sodium (Colace) 100 mg PO DAILY [facility] Stop: 08/13/16 08:59 Last Admin: 06/18/16 10:54 Dose: 100 mg Hydrocortisone (Anusol-Hc) 25 mg RC BID [facility] Stop: 08/13/16 08:59 Last Admin: 06/18/16 10:56 Dose: Not Given Lactobacillus Rhamnosus (Culturelle) 1 each PO DAILY [facility] Stop: 08/13/16 08:59 Last Admin: 06/18/16 10:54 Dose: 1 each Meclizine HCl (Antivert) 25 mg PO DAILY PRN PRN Reason: Nausea / Vomiting Stop: 08/13/16 02:40 Megestrol Acetate (Megace) 40 mg PO QAM [facility] PRN Reason: Protocol Stop: 08/13/16 08:59 Last Admin: 06/18/16 10:53 Dose: 40 mg Mirtazapine (Remeron) 15 mg PO HS [facility] PRN Reason: Protocol Stop: 08/13/16 20:59 Last Admin: 06/17/16 21:13 Dose: 15 mg Mupirocin (Bactroban Oint) 1 appl NS BID [facility] Stop: 06/20/16 09:01 Last Admin: 06/18/16 10:55 Dose: 1 appl Pantoprazole Sodium (Protonix) 40 mg PO BID [facility] Stop: 08/13/16 08:59 Last Admin: 06/18/16 10:51 Dose: 40 mg Polyethylene Glycol (Miralax) 17 gm PO DAILY [facility] Stop: 08/13/16 08:59 Last Admin: 06/18/16 10:44 Dose: Not Given Pseudoephedrine HCl (Sudafed) 60 mg PO Q6H PRN PRN Reason: Congestion Stop: 08/15/16 19:00 Last Admin: 06/17/16 17:13 Dose: 60 mg Tamsulosin HCl (Flomax) 0.4 mg PO DAILY [facility] Stop: 08/13/16 08:59 Last Admin: 06/18/16 10:53 Dose: 0.4 mg General: alert HEENT: NC/AT, PERRLA Neck: Supple Lungs: CTAB Cardiovascular: RRR, Normal S1, Normal S2, without murmur Abdomen: soft non-tender, non-distended Extremities: clear Internal Medicine Assmt/Plan - Assessment Assessment: FAILURE TO THRIVE GERD HIATAL HERNIA CHRONIC LOW BACK PAIN MRSA NARES - Plan Plan: will add MOM cont. megace encourage fluids
[2016-06-18] MEDS: Magnesium Hydroxide (MOM) 30 mL UDC PO PRN (16:55)
--- NOTE | 2016-06-19 03:00 | Progress Notes ---
Covering for Dr. Smith. Case was discussed with staff of the patient, reviewed records. The patient has multiple somatic complaints as apparently his brother's call was surprise that he is in a psych facility, though according to the information, the patient has been depressed with poor appetite, not been eating, refusing to eat, lost 12 pounds in the past 5 weeks. Feeling hopeless and helpless with poor interaction. Unable to care for his ADLs. The patient continues to isolate himself. The staff is trying to prompt him to eat. Dr. Smith had him on Remeron 50 mg at bedtime and Abilify was started by Dr. Elkins ____ mg daily with no side effects, no sedation, no nausea, and we will continue to work with the patient in group therapy, milieu therapy, and adjust medication as needed. JOB# [id number]
[2016-06-19] MEDS: Magnesium Hydroxide (MOM) 30 mL UDC PO PRN (09:03)
[2016-06-19] MEDS: Lactobacillus Rhamnosus 10 Billion CFU Capsule PO SCH (09:03)
[2016-06-19] MEDS: Pantoprazole 40 mg EC Tab PO SCH (09:03)
[2016-06-19] MEDS: POLYETHYLENE GLYCOL 3350 17 GM PACK PO SCH (09:04)
--- NOTE | 2016-06-19 13:37 | Internal Medicine Prog Note ---
Internal Medicine Subjective - Subjective Service Date: 06/19/16 Patient seen and examined:: with staff Patient is:: awake Per staff patient is:: no adverse event Internal Medicine Objective - Results Result Diagrams: 06/18/16 11:15 06/18/16 11:15 Recent Labs: Laboratory Last Values WBC 6.6 Th/cmm (4.8-10.8) 06/18/16 11:15 RBC 3.90 Mil/cmm (3.80-5.80) 06/18/16 11:15 Hgb 12.5 gm/dL (12.6-17.4) L 06/18/16 11:15 Hct 35.9 % (39.0-49.0) L 06/18/16 11:15 MCV 92.1 fl (80-99) 06/18/16 11:15 MCH 32.2 pg (27.0-31.0) H 06/18/16 11:15 MCHC Differential 34.9 pg (28.0-36.0) 06/18/16 11:15 RDW 12.6 % (11.5-20.0) 06/18/16 11:15 Plt Count 303 Th/cmm (150-400) 06/18/16 11:15 MPV 9.7 fl 06/18/16 11:15 Neutrophils % 55.2 % (40.0-80.0) 06/18/16 11:15 Lymphocytes % 29.6 % (20.0-50.0) 06/18/16 11:15 Monocytes % 6.0 % (2.0-10.0) 06/18/16 11:15 Eosinophils % 5.6 % (0.0-5.0) H 06/18/16 11:15 Basophils % 3.6 % (0.0-2.0) H 06/18/16 11:15 Sodium 134 mEq/L (136-145) L 06/18/16 11:15 Potassium 3.9 mEq/L (3.5-5.1) 06/18/16 11:15 Chloride 109 mEq/L (98-107) H 06/18/16 11:15 Carbon Dioxide 23.6 mEq/L (21.0-31.0) 06/18/16 11:15 Anion Gap 5.3 (7.0-16.0) L 06/18/16 11:15 BUN 14 mg/dL (7-25) 06/18/16 11:15 Creatinine 0.9 mg/dL (0.7-1.3) 06/18/16 11:15 Est GFR ( Amer) > 60.0 ml/min (>90) 06/18/16 11:15 Est GFR (Non-Af Amer) > 60.0 ml/min 06/18/16 11:15 BUN/Creatinine Ratio 15.6 06/18/16 11:15 Glucose 100 mg/dL (70-105) 06/18/16 11:15 Calcium 9.3 mg/dL (8.6-10.3) 06/18/16 11:15 Total Bilirubin 0.7 mg/dL (0.3-1.0) 06/18/16 11:15 AST 24 U/L (13-39) 06/18/16 11:15 ALT 24 U/L (7-52) 06/18/16 11:15 Alkaline Phosphatase 43 U/L (34-104) 06/18/16 11:15 Total Protein 6.4 gm/dL (6.0-8.3) 06/18/16 11:15 Albumin 3.4 gm/dL (4.2-5.5) L 06/18/16 11:15 Globulin 3.0 gm/dL 06/18/16 11:15 Albumin/Globulin Ratio 1.1 (1.0-1.8) 06/18/16 11:15 Amylase 51 U/L (29-103) 06/18/16 11:15 Lipase 23 U/L (11-82) 06/18/16 11:15 TSH 1.40 uIU/ml (0.34-5.60) 06/13/16 18:55 RPR NONREACTIVE (NONREACTIVE) 06/13/16 18:55 - Physical Exam Vitals and I&O: Vital Signs Temp 97.4 F 06/19/16 11:05 Pulse 56 06/19/16 11:05 Resp 20 06/19/16 11:05 BP 104/56 06/19/16 11:05 Pulse Ox 96 06/19/16 11:05 Intake & Output 06/18/16 06/19/16 06/19/16 18:59 06:59 18:59 Intake Total 1200 240 Balance 1200 240 Intake: Oral 1200 240 Other: # Voids 3 3 # Bowel Movements 0 Active Medications: Current Medications Acetaminophen (Tylenol) 650 mg PO Q6HR PRN PRN Reason: MILD PAIN Stop: 08/13/16 02:40 Acetaminophen/Hydrocodone Bitart ([place] 5mg/325mg) 1 tab PO Q6HR PRN PRN Reason: Severe Pain Stop: 08/13/16 02:40 Aripiprazole (Abilify) 2 mg PO DAILY [facility] PRN Reason: Protocol Stop: 08/15/16 08:59 Last Admin: 06/19/16 09:03 Dose: 2 mg Aripiprazole (Abilify) 2.5 mg PO DAILY [facility] Stop: 08/15/16 08:59 Last Admin: 06/19/16 09:03 Dose: 2.5 mg Artificial Tears (Artificial Tears Ophth Soln) 1 drop EACH EYE TID PRN PRN Reason: Dry Eye Stop: 08/13/16 02:40 Ascorbic Acid (Vitamin C) 500 mg PO DAILY [facility] Stop: 08/13/16 08:59 Last Admin: 06/19/16 09:04 Dose: Not Given Bisacodyl (Dulcolax 10 Mg Supp) 10 mg RC DAILY PRN PRN Reason: Constipation Stop: 08/13/16 02:40 Last Admin: 06/15/16 14:05 Dose: 10 mg Docusate Sodium (Colace) 100 mg PO DAILY [facility] Stop: 08/13/16 08:59 Last Admin: 06/19/16 09:03 Dose: 100 mg Hydrocortisone (Anusol-Hc) 25 mg RC BID [facility] Stop: 08/13/16 08:59 Last Admin: 06/19/16 09:04 Dose: Not Given Lactobacillus Rhamnosus (Culturelle) 1 each PO DAILY [facility] Stop: 08/13/16 08:59 Last Admin: 06/19/16 09:03 Dose: 1 each Magnesium Hydroxide (Milk Of Magnesia) 30 ml PO HS PRN PRN Reason: Constipation Stop: 08/17/16 12:50 Last Admin: 06/19/16 09:03 Dose: 30 ml Meclizine HCl (Antivert) 25 mg PO DAILY PRN PRN Reason: Nausea / Vomiting Stop: 08/13/16 02:40 Megestrol Acetate (Megace) 40 mg PO QAM [facility] PRN Reason: Protocol Stop: 08/13/16 08:59 Last Admin: 06/19/16 09:03 Dose: 40 mg Mirtazapine (Remeron) 15 mg PO HS [facility] PRN Reason: Protocol Stop: 08/13/16 20:59 Last Admin: 06/18/16 20:48 Dose: 15 mg Mupirocin (Bactroban Oint) 1 appl NS BID [facility] Stop: 06/20/16 09:01 Last Admin: 06/19/16 09:04 Dose: 1 appl Pantoprazole Sodium (Protonix) 40 mg PO BID [facility] Stop: 08/13/16 08:59 Last Admin: 06/19/16 09:03 Dose: 40 mg Polyethylene Glycol (Miralax) 17 gm PO DAILY [facility] Stop: 08/13/16 08:59 Last Admin: 06/19/16 09:04 Dose: Not Given Pseudoephedrine HCl (Sudafed) 60 mg PO Q6H PRN PRN Reason: Congestion Stop: 08/15/16 19:00 Last Admin: 06/18/16 16:56 Dose: 60 mg Tamsulosin HCl (Flomax) 0.4 mg PO DAILY [facility] Stop: 08/13/16 08:59 Last Admin: 06/19/16 09:03 Dose: 0.4 mg General: alert HEENT: NC/AT, PERRLA Neck: Supple Lungs: CTAB Cardiovascular: RRR, Normal S1, Normal S2, without murmur Abdomen: soft non-tender Internal Medicine Assmt/Plan - Assessment Assessment: FAILURE TO THRIVE GERD HIATAL HERNIA CHRONIC LOW BACK PAIN MRSA NARES - Plan Plan: cont. megace encourage fluids
--- NOTE | 2016-06-19 18:46 | Discharge Summary ---
FINAL DIAGNOSIS/PRIMARY DIAGNOSIS: Major depression, severe, recurrent, with psychotic features. REASON FOR HOSPITALIZATION: The patient was admitted to the hospital because of depression and lack of appetite and patient lost 12 pounds in 5 weeks and he was suspicious and paranoid and has severe symptoms and signs of depression. HOSPITAL COURSE: The patient continued to be severely anxious and severely depressed. The patient also was isolative and withdrawn. The patient was started on Remeron in a dose of 50 mg at bedtime and Abilify in a dose of 2 mg in the morning adjusted to 2.5 mg in the morning. Gradually, the patient's affect was brighter. The patient's appetite improved. The patient was not suicidal or homicidal. The patient was discharged from the hospital. Physical examination showed no major medical problems. AFTER DISCHARGE PLANS: The patient will be discharged from the hospital [place] [facility] [place]ED OUTCOME AFTER DISCHARGE: Fair, if the patient continues with his psychotropic medications and follow up with treatment recommendations. [facility]# [id number]
== END 2016-06-19 15:23 | DRG 885 ==
LOC: ER 17:50 → GERO 19:40
PROVIDERS: ADMIT Psychiatry & Neurology Psychiatry; ATTEND Psychiatry & Neurology Psychiatry
DX: F33.3 Major depressive disorder, recurrent, severe with psychotic symptoms (principal); R63.0 Anorexia; K59.00 Constipation, unspecified; K21.9 Gastro-esophageal reflux disease without esophagitis; G89.29 Other chronic pain; M54.9 Dorsalgia, unspecified; R62.7 Adult failure to thrive; K44.9 Diaphragmatic hernia without obstruction or gangrene; Z98.890 Other specified postprocedural states
CPT/HCPCS: 36415-UA; 80053-TC; 82150-TC; 83690-TC; 84443-TC; 85025-TC; 86592-TC; 90899; 93005; G0410; Z7610